=== PATIENT | male | born 2000 | race Caucasian/White ===

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

== ENCOUNTER 2019-11-18 21:46 | Emergency (ER) | payer BC ==
[~2019-11-18] VITALS: Ht 182.9 cm; Wt 113.4 kg
--- NOTE | 2019-11-19 12:52 | EKG ---
[facility] [address] [facility] [place], [place] [address] Signed Sinus tachycardia Otherwise normal ECG No previous ECGs available Confirmed by RUFINA STEINBERG DO ([id number]) on 11/19/2019 12:52:21 PM Electronically Signed By: RUFINA STEINBERG DO 11/19/19 1252 PATIENT NAME: STEPHANIE SALCEDO Electrocardiogram DATE OF : [birth year] PHYSICIAN: RUFINA STEINBERG DO REPORT #: [id number] REPORT IS CONFIDENTIAL AND NOT TO BE RELEASED WITHOUT AUTHORIZATION
== END 2019-11-18 23:31 | disposition home or self-care (01) ==
LOC: ED 21:46
DX: F41.9 Anxiety disorder, unspecified (principal); F17.200 Nicotine dependence, unspecified, uncomplicated
CPT/HCPCS: 71045; 93005; 93010; 96374; 99284-25; J2060